=== PATIENT | male | born 1940 | race African-American/Black ===

== ENCOUNTER 2022-09-21 17:02 | Inpatient (IN) | payer BC ==
[~2022-09-21] VITALS: Ht 185.4 cm; Wt 98.9 kg
[2022-09-21 18:59] LABS: HEMOGLOBIN. 10.5 g/dL (14.0-18.0); MEAN CORPUSCULAR HEMOGLOBIN 31.8 pg (28.0-32.0); MEAN CORPUSCULAR VOLUME 93.7 fL (80.0-94.0); MEAN PLATELET VOLUME 6.9 fl (7.4-10.4); PLATELET 353 x1000/uL (130-400); RED CELL DISTRIBUTION WIDTH 19.5 % (11.6-14.6)
[2022-09-21 19:07] LABS: CHLORIDE 106 mEq/L (98-107)
[2022-09-21 19:08] LABS: INR 1.1; PROTHROMBIN TIME 11.8 sec (9.6-11.0)
[2022-09-21 20:13] LABS: PLATELET ESTIMATE NORMAL
[2022-09-21 20:37] LABS: CLARITY URINE CLEAR (CLEAR); COLOR URINE YELLOW (YELLOW); KETONES URINE NEGATIVE (NEGATIVE); LEUKOCYTE ESTERASE URINE NEGATIVE (NEGATIVE); NITRITE URINE NEGATIVE (NEGATIVE); OCCULT BLOOD URINE NEGATIVE (NEGATIVE); PH URINE 6.5 (4.5-8.0); PROTEIN URINE 2+ (NEGATIVE); SPECIFIC GRAVITY URINE 1.018 (1.005-1.030)
[2022-09-22] VITALS (7 sets, daily range): BP systolic 115–156; BP diastolic 68–79
[2022-09-22] MEDS ORDERED: IOHEXOL-350 100 ML BOTTLE ONE ×2 (02:36→23:22)
[2022-09-22] MEDS ORDERED: HYDRALAZINE 20MG/ML VIAL IV NR (04:30)
[2022-09-22] MEDS ORDERED: IPRATROPIUM/ALBUTEROL 0.5-3(2.5)MG/3ML NEB HHN PRN ×2 (06:30→12:45)
[2022-09-22] MEDS ORDERED: IPRATROPIUM BROMIDE (0.02%) 0.5MG/2.5ML NEB HHN PRN (06:30)
[2022-09-22] MEDS ORDERED: ALBUTEROL (0.083%) 2.5MG/3ML NEB HHN PRN (06:30)
[2022-09-22 12:47] LABS: HEPATITIS B SURFACE ANTIGEN NEGATIVE
[2022-09-22] MEDS: SODIUM CHLORIDE 0.45% 1,000 ML IV SCH (15:26)
[2022-09-22] MEDS: PIPERACILLIN/TAZOBACTAM 3.375 G in DEXTROSE 5% WATER 50 ML IV SCH (15:52)
[2022-09-22 22:02] LABS: HEMATOCRIT. 30.7 % (42.0-52.0); HEMOGLOBIN. 10.3 g/dL (14.0-18.0); MEAN CORPUSCULAR VOLUME 95.4 fL (80.0-94.0); MEAN PLATELET VOLUME 7.7 fl (7.4-10.4); PLATELET 345 x1000/uL (130-400); RED BLOOD CELL COUNT 3.22 mill/uL (4.7-6.1)
[2022-09-22 22:11] LABS: CHLORIDE 105 mEq/L (98-107)
[2022-09-22 22:19] LABS: HDL CHOLESTEROL 37 mg/dL (40-59); LDL CHOLESTEROL 59 mg/dL (5-100)
[2022-09-22 22:33] LABS: PLATELET ESTIMATE NORMAL
[2022-09-23] VITALS (7 sets, daily range): BP systolic 146–189; BP diastolic 68–89
[2022-09-23] MEDS: PIPERACILLIN/TAZOBACTAM 3.375 G in DEXTROSE 5% WATER 50 ML IV SCH ×4 (01:35→21:19)
[2022-09-23] MEDS: SODIUM CHLORIDE 0.45% 1,000 ML IV SCH ×2 (15:36→15:47)
[2022-09-23] MEDS: HYDRALAZINE 20MG/ML VIAL IV PRN (21:53)
[2022-09-24] VITALS (32 sets, daily range): BP systolic 96–178; BP diastolic 44–120
[2022-09-24 05:27] LABS: HEMATOCRIT. 33.5 % (42.0-52.0); HEMOGLOBIN. 11.3 g/dL (14.0-18.0); MEAN CORPUSCULAR HEMOGLOBIN 31.6 pg (28.0-32.0); MEAN PLATELET VOLUME 7.6 fl (7.4-10.4); PLATELET 344 x1000/uL (130-400); RED BLOOD CELL COUNT 3.56 mill/uL (4.7-6.1); RED CELL DISTRIBUTION WIDTH 20.3 % (11.6-14.6)
[2022-09-24] MEDS: PIPERACILLIN/TAZOBACTAM 3.375 G in DEXTROSE 5% WATER 50 ML IV SCH ×3 (05:46→21:27)
[2022-09-24 06:43] LABS: PLATELET ESTIMATE NORMAL
[2022-09-24 08:15] LABS: CHLORIDE 104 mEq/L (98-107)
[2022-09-24] MEDS: HYDRALAZINE 20MG/ML VIAL IV PRN ×2 (09:20→21:27)
[2022-09-24] MEDS ORDERED: THROMBIN (BOVINE) 5000 UNITS/VIAL TOP ONE (15:15)
[2022-09-24] MEDS ORDERED: POLYMYXIN B SULFATE 500000 UNITS/VIAL ONE (15:15)
[2022-09-24] MEDS ORDERED: BUPIVACAINE HCL/PF 0.5% (5MG/ML) 10ML ONE (15:16)
[2022-09-24] MEDS ORDERED: LIDOCAINE HCL 1% 20ML VIAL (Pyxis) INJ ONE (15:16)
[2022-09-24] MEDS ORDERED: BACITRACIN 15GM TUBE TOP ONE (15:16)
[2022-09-24] MEDS ORDERED: HEPARIN SODIUM 1,000 UNIT/1ML VIAL IV ONE (15:16)
[2022-09-24] MEDS ORDERED: ROCURONIUM BROMIDE 10MG/ML VIAL 5ML IV ONE (15:19)
[2022-09-24] MEDS ORDERED: ONDANSETRON HCL 4MG/2ML INJ ONE (15:19)
[2022-09-24] MEDS ORDERED: DEXAMETHASONE 4MG/ML 1ML VIAL ONE (15:19)
[2022-09-24] MEDS ORDERED: ETOMIDATE 2MG/ML 10ML VIAL IV ONE ×2 (15:19→15:23)
[2022-09-24] MEDS ORDERED: LIDOCAINE HCL 1% 10 MG/ML 10ML VIAL ONE (15:19)
[2022-09-24] MEDS ORDERED: SUCCINYLCHOLINE CHLORIDE 200MG/10ML IV ONE (15:19)
[2022-09-24] MEDS ORDERED: NEOSTIGMINE METHYLSULFATE 1MG/ML 10 ML VIAL ONE (15:19)
[2022-09-24] MEDS ORDERED: GLYCOPYRROLATE 0.2 MG/ML 2ML VIAL ONE ×2 (15:20)
[2022-09-24] MEDS ORDERED: MIDAZOLAM HCL 2 MG/2 ML VIAL ONE (15:20)
[2022-09-24] MEDS ORDERED: FENTANYL CITRATE/PF 50MCG/ML 2ML VIAL ONE (15:20)
[2022-09-24] MEDS ORDERED: NICARDIPINE 40MG/200ML PREMIX 200 ML IV PRN (15:30)
[2022-09-24] MEDS ORDERED: MORPHINE SULFATE 4 MG/ML CPJ (NOT FOR IM USE) IV PRN (15:30)
[2022-09-24] MEDS ORDERED: PROPOFOL 200MG/20ML VIAL IV ONE (15:32)
[2022-09-24] MEDS ORDERED: MEPERIDINE HCL/PF 25MG/ML CPJ IV PRN (16:45)
[2022-09-24] MEDS ORDERED: ONDANSETRON HCL 4MG/2ML INJ IV PRN (16:45)
[2022-09-24] MEDS ORDERED: LABETALOL 5MG/ML SYR 20 MG/4 ML SYRINGE IV PRN (16:45)
[2022-09-24] MEDS ORDERED: HYDROMORPHONE HCL/PF 2MG/ML CPJ IV PRN (16:45)
[2022-09-24] MEDS ORDERED: HYDRALAZINE 20MG/ML VIAL ONE (16:57)
[2022-09-24] MEDS ORDERED: LABETALOL HCL 5MG/ML VIAL 20ML IV ONE (16:57)
[2022-09-24] MEDS: SODIUM CHLORIDE 0.45% 1,000 ML IV SCH ×4 (19:33→21:21)
[2022-09-24] MEDS: ASPIRIN 81MG TABLET PO SCH (21:45)
[2022-09-24] MEDS ORDERED: IOHEXOL-350 100 ML BOTTLE ONE (23:15)
[2022-09-25] VITALS (52 sets, daily range): BP systolic 88–162; BP diastolic 54–130
[2022-09-25] MEDS: PIPERACILLIN/TAZOBACTAM 3.375 G in DEXTROSE 5% WATER 50 ML IV SCH ×3 (06:58→21:03)
[2022-09-25] MEDS ORDERED: NALOXONE HCL 0.4MG/ML VIAL IV PRN (08:00)
[2022-09-25] MEDS: ASPIRIN 81MG TABLET PO SCH (08:41)
[2022-09-25] MEDS: HYDRALAZINE 20MG/ML VIAL IV PRN (13:07)
[2022-09-25] MEDS: SODIUM CHLORIDE 0.45% 1,000 ML IV SCH (18:36)
[2022-09-26] VITALS (39 sets, daily range): BP systolic 117–169; BP diastolic 56–111
[2022-09-26] MEDS: HYDRALAZINE 20MG/ML VIAL IV PRN ×2 (03:14→19:22)
[2022-09-26 06:04] LABS: HEMATOCRIT. 29.7 % (42.0-52.0); HEMOGLOBIN. 10.2 g/dL (14.0-18.0); MEAN CORPUSCULAR VOLUME 93.7 fL (80.0-94.0); MEAN PLATELET VOLUME 7.5 fl (7.4-10.4); PLATELET 356 x1000/uL (130-400); RED BLOOD CELL COUNT 3.18 mill/uL (4.7-6.1); RED CELL DISTRIBUTION WIDTH 20.1 % (11.6-14.6)
[2022-09-26] MEDS: PIPERACILLIN/TAZOBACTAM 3.375 G in DEXTROSE 5% WATER 50 ML IV SCH ×3 (06:39→21:49)
[2022-09-26 06:45] LABS: CHLORIDE 103 mEq/L (98-107)
[2022-09-26] MEDS: ASPIRIN 81MG TABLET PO SCH (08:36)
[2022-09-26] MEDS: DOCUSATE SODIUM SUGAR FREE 100MG/10ML UDC PO SCH (08:36)
[2022-09-26 12:01] LABS: PLATELET ESTIMATE NORMAL
[2022-09-26] MEDS: ATORVASTATIN CALCIUM 10MG TABLET PO SCH (20:13)
[2022-09-26] MEDS: SODIUM CHLORIDE 0.45% 1,000 ML IV SCH (23:40)
[2022-09-27] VITALS (14 sets, daily range): BP systolic 132–160; BP diastolic 68–108
[2022-09-27] MEDS: PIPERACILLIN/TAZOBACTAM 3.375 G in DEXTROSE 5% WATER 50 ML IV SCH (05:27)
[2022-09-27] MEDS: ASPIRIN 81MG TABLET PO SCH (09:13)
[2022-09-27] MEDS: DOCUSATE SODIUM SUGAR FREE 100MG/10ML UDC PO SCH (09:14)
[2022-09-27] MEDS: SODIUM CHLORIDE 0.45% 1,000 ML IV SCH (15:50)
[2022-09-27] MEDS: ATORVASTATIN CALCIUM 10MG TABLET PO SCH (21:01)
[2022-09-27] MEDS: HYDRALAZINE 20MG/ML VIAL IV PRN (21:57)
[2022-09-28] VITALS (14 sets, daily range): BP systolic 114–153; BP diastolic 63–95
[2022-09-28] MEDS: SODIUM CHLORIDE 0.45% 1,000 ML IV SCH ×2 (02:20→15:40)
[2022-09-28] MEDS: ACETAMINOPHEN 325MG TABLET PO PRN (02:29)
[2022-09-28] MEDS: DOCUSATE SODIUM SUGAR FREE 100MG/10ML UDC PO SCH (09:00)
[2022-09-28] MEDS: ASPIRIN 81MG TABLET PO SCH (10:08)
[2022-09-28 15:45] LABS: HEMATOCRIT. 27.4 % (42.0-52.0); HEMOGLOBIN. 9.5 g/dL (14.0-18.0); MEAN CORPUSCULAR HEMOGLOBIN 32.4 pg (28.0-32.0); MEAN CORPUSCULAR VOLUME 93.7 fL (80.0-94.0); MEAN PLATELET VOLUME 7.8 fl (7.4-10.4); PLATELET 351 x1000/uL (130-400); RED BLOOD CELL COUNT 2.93 mill/uL (4.7-6.1); RED CELL DISTRIBUTION WIDTH 20.7 % (11.6-14.6)
[2022-09-28 15:52] LABS: CHLORIDE 105 mEq/L (98-107)
[2022-09-28] MEDS: VANCOMYCIN 1.25GM PMX (XELLIA) 250 ML IV SCH (17:18)
[2022-09-28 21:11] LABS: PLATELET ESTIMATE NORMAL
[2022-09-28] MEDS: ATORVASTATIN CALCIUM 10MG TABLET PO SCH (21:50)
[2022-09-29] VITALS (12 sets, daily range): BP systolic 131–165; BP diastolic 66–85
[2022-09-29 07:20] LABS: HEMOGLOBIN. 9.5 g/dL (14.0-18.0); MEAN CORPUSCULAR HEMOGLOBIN 32.1 pg (28.0-32.0); MEAN CORPUSCULAR VOLUME 94.5 fL (80.0-94.0); MEAN PLATELET VOLUME 7.8 fl (7.4-10.4); PLATELET 332 x1000/uL (130-400); RED BLOOD CELL COUNT 2.96 mill/uL (4.7-6.1); RED CELL DISTRIBUTION WIDTH 20.3 % (11.6-14.6)
[2022-09-29 07:55] LABS: CHLORIDE 108 mEq/L (98-107)
[2022-09-29 08:11] LABS: CREATINE KINASE 82 IU/L (39-308)
[2022-09-29] MEDS: ASPIRIN 81MG TABLET PO SCH (09:22)
[2022-09-29] MEDS: DOCUSATE SODIUM SUGAR FREE 100MG/10ML UDC PO SCH (09:24)
[2022-09-29 13:45] LABS: PLATELET ESTIMATE NORMAL
[2022-09-29] MEDS: VANCOMYCIN 1.25GM PMX (XELLIA) 250 ML IV SCH (13:47)
[2022-09-29] MEDS: SODIUM CHLORIDE 0.45% 1,000 ML IV SCH (17:55)
[2022-09-29] MEDS: VANCOMYCIN 1000MG/20ML ORAL SOLN PO SCH (17:55)
[2022-09-29] MEDS: ATORVASTATIN CALCIUM 10MG TABLET PO SCH (21:23)
[2022-09-30] VITALS (12 sets, daily range): BP systolic 140–176; BP diastolic 70–89
[2022-09-30] MEDS: VANCOMYCIN 1000MG/20ML ORAL SOLN PO SCH ×5 (00:43→23:21)
[2022-09-30] MEDS: SODIUM CHLORIDE 0.45% 1,000 ML IV SCH ×2 (06:53→20:33)
[2022-09-30] MEDS: ASPIRIN 81MG TABLET PO SCH (08:51)
[2022-09-30] MEDS: DOCUSATE SODIUM SUGAR FREE 100MG/10ML UDC PO SCH (08:51)
[2022-09-30] MEDS: ACETAMINOPHEN 325MG TABLET PO PRN (19:49)
[2022-09-30] MEDS: ATORVASTATIN CALCIUM 10MG TABLET PO SCH (20:33)
[2022-10-01] VITALS (9 sets, daily range): BP systolic 142–170; BP diastolic 69–99
[2022-10-01] MEDS: VANCOMYCIN 1000MG/20ML ORAL SOLN PO SCH ×3 (05:51→23:39)
[2022-10-01] MEDS: ASPIRIN 81MG TABLET PO SCH (09:06)
[2022-10-01] MEDS: DOCUSATE SODIUM SUGAR FREE 100MG/10ML UDC PO SCH (09:06)
[2022-10-01] MEDS: SODIUM CHLORIDE 0.45% 1,000 ML IV SCH (10:53)
[2022-10-01] MEDS: ATORVASTATIN CALCIUM 10MG TABLET PO SCH (21:06)
[2022-10-02] VITALS: BP 158/73
[2022-10-02] MEDS ORDERED: CLONIDINE 0.1MG TABLET PO PRN (00:15)
[2022-10-02 04:00] VITALS: BP 173/77
[2022-10-02 06:31] LABS: HEMATOCRIT. 25.5 % (42.0-52.0); HEMOGLOBIN. 8.7 g/dL (14.0-18.0); MEAN CORPUSCULAR HEMOGLOBIN 31.9 pg (28.0-32.0); MEAN CORPUSCULAR VOLUME 93.5 fL (80.0-94.0); MEAN PLATELET VOLUME 7.9 fl (7.4-10.4); PLATELET 357 x1000/uL (130-400); RED BLOOD CELL COUNT 2.72 mill/uL (4.7-6.1); RED CELL DISTRIBUTION WIDTH 19.5 % (11.6-14.6)
[2022-10-02] MEDS: VANCOMYCIN 1000MG/20ML ORAL SOLN PO SCH ×3 (07:01→18:12)
[2022-10-02 07:31] LABS: CHLORIDE 106 mEq/L (98-107)
[2022-10-02 07:39] LABS: CREATINE KINASE 41 IU/L (39-308)
[2022-10-02 08:00] VITALS: BP 131/63
[2022-10-02] MEDS: DOCUSATE SODIUM SUGAR FREE 100MG/10ML UDC PO SCH (08:24)
[2022-10-02] MEDS: ASPIRIN 81MG TABLET PO SCH (08:24)
[2022-10-02 12:00] VITALS: BP 132/61
[2022-10-02] MEDS ORDERED: POTASSIUM CHLORIDE 20MEQ TABLET SR PO NR ×2 (15:54→18:00)
[2022-10-02 16:00] VITALS: BP 133/56
[2022-10-02] MEDS ORDERED: POTASSIUM CHLORIDE 20MEQ/PACKET PO NR ×2 (16:15→18:30)
[2022-10-02 18:57] LABS: PLATELET ESTIMATE NORMAL
[2022-10-02 20:00] VITALS: BP 145/64
[2022-10-02] MEDS: ATORVASTATIN CALCIUM 10MG TABLET PO SCH (21:34)
[2022-10-03] VITALS: BP 154/63
[2022-10-03] MEDS: VANCOMYCIN 1000MG/20ML ORAL SOLN PO SCH ×5 (00:20→23:59)
[2022-10-03 08:00] VITALS: BP 141/73
[2022-10-03] MEDS: ASPIRIN 81MG TABLET PO SCH (08:41)
[2022-10-03] MEDS: DOCUSATE SODIUM SUGAR FREE 100MG/10ML UDC PO SCH (08:41)
[2022-10-03 12:00] VITALS: BP 139/73
[2022-10-03] MEDS ORDERED: POLYVINYL ALCOHOL OPHTH DROPS 15ML RIGHTEYE PRN (14:00)
[2022-10-03 16:00] VITALS: BP 136/60
[2022-10-03 16:42] LABS: HEMATOCRIT. 28.5 % (42.0-52.0); HEMOGLOBIN. 9.6 g/dL (14.0-18.0); MEAN CORPUSCULAR HEMOGLOBIN 31.7 pg (28.0-32.0); MEAN CORPUSCULAR VOLUME 94.4 fL (80.0-94.0); MEAN PLATELET VOLUME 8.2 fl (7.4-10.4); PLATELET 534 x1000/uL (130-400); RED BLOOD CELL COUNT 3.01 mill/uL (4.7-6.1); RED CELL DISTRIBUTION WIDTH 19.8 % (11.6-14.6)
[2022-10-03 16:49] LABS: CHLORIDE 108 mEq/L (98-107)
[2022-10-03] MEDS: ERYTHROMYCIN BASE 0.5% OPHTH OINT 3.5GM RIGHTEYE SCH (16:59)
[2022-10-03] MEDS ORDERED: POTASSIUM CHLORIDE 20MEQ/PACKET PO NR (18:00)
[2022-10-03 20:00] VITALS: BP 169/81
[2022-10-03] MEDS: ATORVASTATIN CALCIUM 10MG TABLET PO SCH (21:00)
[2022-10-03] MEDS: HYDRALAZINE 20MG/ML VIAL IV PRN (21:00)
[2022-10-03 22:29] LABS: NUCLEATED RED BLOOD CELLS 2 /100 WBC; PLATELET ESTIMATE MARKEDLY INCREASED
[2022-10-04] VITALS: BP 155/73
[2022-10-04 04:00] VITALS: BP 158/70
[2022-10-04] MEDS: VANCOMYCIN 1000MG/20ML ORAL SOLN PO SCH ×3 (05:57→18:17)
[2022-10-04] MEDS: ERYTHROMYCIN BASE 0.5% OPHTH OINT 3.5GM RIGHTEYE SCH ×4 (05:58→18:17)
[2022-10-04 06:21] LABS: HEMATOCRIT. 29.7 % (42.0-52.0); HEMOGLOBIN. 10.2 g/dL (14.0-18.0); MEAN CORPUSCULAR HEMOGLOBIN 32.2 pg (28.0-32.0); MEAN CORPUSCULAR VOLUME 93.6 fL (80.0-94.0); MEAN PLATELET VOLUME 7.9 fl (7.4-10.4); PLATELET 526 x1000/uL (130-400); RED BLOOD CELL COUNT 3.18 mill/uL (4.7-6.1); RED CELL DISTRIBUTION WIDTH 19.5 % (11.6-14.6)
[2022-10-04 06:45] LABS: CHLORIDE 109 mEq/L (98-107)
[2022-10-04 08:00] VITALS: BP 161/69
[2022-10-04] MEDS: DOCUSATE SODIUM SUGAR FREE 100MG/10ML UDC PO SCH (09:26)
[2022-10-04] MEDS: ASPIRIN 81MG TABLET PO SCH (09:26)
[2022-10-04 12:00] VITALS: BP 160/75
[2022-10-04 16:00] VITALS: BP 158/74
[2022-10-04 20:00] VITALS: BP 143/73
[2022-10-04] MEDS: ATORVASTATIN CALCIUM 10MG TABLET PO SCH (21:49)
[2022-10-05] VITALS: BP 128/68
[2022-10-05] MEDS: ERYTHROMYCIN BASE 0.5% OPHTH OINT 3.5GM RIGHTEYE SCH ×5 (00:54→17:50)
[2022-10-05] MEDS: VANCOMYCIN 1000MG/20ML ORAL SOLN PO SCH ×4 (00:54→17:45)
[2022-10-05 04:00] VITALS: BP 143/74
[2022-10-05 06:34] LABS: PLATELET ESTIMATE NORMAL
[2022-10-05 08:00] VITALS: BP 156/72
[2022-10-05] MEDS: DOCUSATE SODIUM SUGAR FREE 100MG/10ML UDC PO SCH (08:48)
[2022-10-05] MEDS: ASPIRIN 81MG TABLET PO SCH (08:48)
[2022-10-05 12:00] VITALS: BP 139/73
[2022-10-05 16:00] VITALS: BP 122/68
[2022-10-05 20:00] VITALS: BP 108/60
[2022-10-05] MEDS: ATORVASTATIN CALCIUM 10MG TABLET PO SCH (21:24)
[2022-10-06] VITALS: BP 128/69
[2022-10-06] MEDS: ERYTHROMYCIN BASE 0.5% OPHTH OINT 3.5GM RIGHTEYE SCH ×3 (00:43→12:19)
[2022-10-06 04:00] VITALS: BP 125/74
[2022-10-06 08:30] VITALS: BP 133/76
[2022-10-06] MEDS: DOCUSATE SODIUM SUGAR FREE 100MG/10ML UDC PO SCH (09:33)
[2022-10-06] MEDS: ASPIRIN 81MG TABLET PO SCH (09:33)
[2022-10-06 12:00] VITALS: BP 126/70
[2022-10-06 15:04] VITALS: BP 126/70
[2022-10-06 16:00] VITALS: BP 130/70
[2022-10-06 17:12] LABS: HEMATOCRIT. 27.2 % (42.0-52.0); MEAN CORPUSCULAR VOLUME 96.1 fL (80.0-94.0); MEAN PLATELET VOLUME 7.6 fl (7.4-10.4); PLATELET 643 x1000/uL (130-400); RED BLOOD CELL COUNT 2.83 mill/uL (4.7-6.1); RED CELL DISTRIBUTION WIDTH 20.2 % (11.6-14.6)
[2022-10-06 17:35] LABS: CHLORIDE 109 mEq/L (98-107)
[2022-10-06 18:49] LABS: PLATELET ESTIMATE MARKEDLY INCREASED
== END 2022-10-06 19:02 | DRG 37 ==
LOC: ER 17:02 → MICUSO 22:14 → 7EST 09-22 05:53 → MICUSO 09-24 18:00 → 5EST 09-26 17:42 → 7EST 10-01 12:43
PROVIDERS: ADMIT Internal Medicine; ATTEND Internal Medicine
PROC: 03CJ0ZZ Extirpation of Matter from Left Common Carotid Artery, Open Approach (ICD-10-PCS; principal; 2022-09-24)
PROC: 07B20ZX Excision of Left Neck Lymphatic, Open Approach, Diagnostic (ICD-10-PCS; 2022-09-24)
PROC: 4A10X4Z Monitoring of Central Nervous Electrical Activity, External Approach (ICD-10-PCS; 2022-09-25)
DX: I65.22 Occlusion and stenosis of left carotid artery (principal); I63.9 Cerebral infarction, unspecified; K55.1 Chronic vascular disorders of intestine; R16.1 Splenomegaly, not elsewhere classified; R55 Syncope and collapse; D64.9 Anemia, unspecified; I10 Essential (primary) hypertension; D72.825 Bandemia; Z20.822 Contact with and (suspected) exposure to COVID-19
CPT/HCPCS: 36415; 70496; 70498; 70551; 71045; 74174; 74176; 80048; 80053; 80061; 80076; 81003; 82550; 82962; 83036; 83615; 84132; 84145; 84443; 84484; 85025; 86430; 86803; 87340; 87426; 88304; 88305; 88311; 93005; 93880; 93970; 95816; 97162; 97164; 99291; A6261; C1893; J0330; J0360; J1100; J1644; J2250; J2405; J2543; J2704; J2710; J3010; J3370; J3490; J7060; Q9967; A4315